=== PATIENT | female | born 1990 | race Two or more races ===

== ENCOUNTER 2021-01-11 08:43 | Inpatient (IN) | payer OTHER ==
[~2021-01-11] VITALS: Ht 154.9 cm; Wt 68.0 kg
[2021-01-11] MEDS ORDERED: ATABEX OB TABL1 EACH (11:44)
== END 2021-01-13 13:33 | disposition home or self-care (01) | DRG 807 ==
LOC: LDR 08:43 → OB/GYN 08:43 → LDR 21:17 → OB/GYN 01-12 16:14
PROVIDERS: ADMIT Obstetrics & Gynecology; ATTEND Obstetrics & Gynecology
PROC: 10E0XZZ Delivery of Products of Conception, External Approach (ICD-10-PCS; principal; 2021-01-11)
PROC: 4A1HXFZ Monitoring of Products of Conception, Cardiac Rhythm, External Approach (ICD-10-PCS; 2021-01-11)
DX: O80 Encounter for full-term uncomplicated delivery (principal); Z37.0 Single live birth; Z3A.37 37 weeks gestation of pregnancy; Z20.822 Contact with and (suspected) exposure to COVID-19

== ENCOUNTER 2023-07-31 21:58 | Emergency (ER) | payer OTHER ==
[~2023-07-31] VITALS: Ht 154.9 cm; Wt 62.6 kg
[~2023-07-31 21:58] MED LIST: ATABEX OB TABL1 EACH
== END 2023-07-31 23:36 | disposition home or self-care (01) ==
LOC: ER 21:58
DX: J32.8 Other chronic sinusitis (principal); Z91.018 Allergy to other foods